=== PATIENT | female | born 1990 | race Two or more races ===

== ENCOUNTER 2017-05-31 13:45 | Emergency (ER) | payer MEDICAID, OTHER ==
[~2017-05-31] VITALS: Ht 139.7 cm; Wt 51.7 kg
[2017-05-31 15:49] VITALS: BP 102/70
== END 2017-05-31 16:31 | disposition home or self-care (01) ==
LOC: ER 13:45
DX: J02.9 Acute pharyngitis, unspecified (principal); J04.0 Acute laryngitis